=== PATIENT | female | born 1990 | race Caucasian/White ===

== ENCOUNTER 2024-06-17 06:45 | Outpatient (CLI) | payer MEDICAID, SELFPAY | END 2024-06-17 06:46 | disposition home or self-care (01) | LOC: INJ CL 06:49 | PROVIDERS: PCP Physician Assistant; Visit Provider Family Medicine | DX: M54.16 Radiculopathy, lumbar region (principal); M51.26 Other intervertebral disc displacement, lumbar region | CPT/HCPCS: 64483; J1100; Q9966 ==

== ENCOUNTER 2024-08-23 12:51 | Outpatient (CLI) | payer MEDICAID, SELFPAY | END 2024-08-23 12:52 | disposition home or self-care (01) | LOC: INJ CL 12:52 | PROVIDERS: PCP Physician Assistant; Visit Provider Family Medicine | DX: M54.16 Radiculopathy, lumbar region (principal); M51.369 Other intervertebral disc degeneration, lumbar region without mention of lumbar back pain or lower extremity pain | CPT/HCPCS: 62323; J0702; Q9966 ==